=== PATIENT | female | born 1940 | race Hispanic/Latino ===

== ENCOUNTER 2020-11-05 09:14 | Outpatient (CLI) | payer MEDICARE, BC | END 2020-11-05 09:15 | disposition home or self-care (01) | LOC: CSHWCC 09:14 | PROVIDERS: ATTEND Nurse Practitioner Family | DX: T81.89XD Other complications of procedures, not elsewhere classified, subsequent encounter (principal); E27.40 Unspecified adrenocortical insufficiency; G89.4 Chronic pain syndrome; I10 Essential (primary) hypertension; M06.9 Rheumatoid arthritis, unspecified; Z92.25 Personal history of immunosuppression therapy | CPT/HCPCS: 87070; 87077; 87186; 87205; 97607 ==

== ENCOUNTER 2020-11-13 08:59 | Outpatient (CLI) | payer MEDICARE, BC | END 2020-11-13 09:00 | disposition home or self-care (01) | LOC: CSHWCC 08:59 | PROVIDERS: ATTEND Nurse Practitioner Family | DX: T81.89XD Other complications of procedures, not elsewhere classified, subsequent encounter (principal); E27.40 Unspecified adrenocortical insufficiency; G89.4 Chronic pain syndrome; I10 Essential (primary) hypertension; M06.9 Rheumatoid arthritis, unspecified; Z92.25 Personal history of immunosuppression therapy | CPT/HCPCS: 97607 ==

== ENCOUNTER 2020-11-21 09:07 | Outpatient (CLI) | payer MEDICARE, BC | END 2020-11-21 09:08 | disposition home or self-care (01) | LOC: CSHWCC 09:07 | PROVIDERS: ATTEND Nurse Practitioner Family | DX: T81.89XD Other complications of procedures, not elsewhere classified, subsequent encounter (principal); E27.40 Unspecified adrenocortical insufficiency; G89.4 Chronic pain syndrome; I10 Essential (primary) hypertension; M06.9 Rheumatoid arthritis, unspecified; Z92.25 Personal history of immunosuppression therapy | CPT/HCPCS: 97607 ==

== ENCOUNTER 2020-11-25 09:37 | Outpatient (CLI) | payer MEDICARE, BC | END 2020-11-25 09:38 | disposition home or self-care (01) | LOC: CSHWCC 09:37 | PROVIDERS: ATTEND Nurse Practitioner Family | DX: T81.89XD Other complications of procedures, not elsewhere classified, subsequent encounter (principal); E27.40 Unspecified adrenocortical insufficiency; G89.4 Chronic pain syndrome; I10 Essential (primary) hypertension; M06.9 Rheumatoid arthritis, unspecified; Z92.25 Personal history of immunosuppression therapy | CPT/HCPCS: 97605; 99213; G0463 ==

== ENCOUNTER 2020-11-28 09:00 | Outpatient (CLI) | payer MEDICARE, BC | END 2020-11-28 09:01 | disposition home or self-care (01) | LOC: CSHWCC 09:00 | PROVIDERS: ATTEND Nurse Practitioner Family | DX: T81.89XD Other complications of procedures, not elsewhere classified, subsequent encounter (principal); E27.40 Unspecified adrenocortical insufficiency; G89.4 Chronic pain syndrome; M06.9 Rheumatoid arthritis, unspecified; I10 Essential (primary) hypertension; Z92.25 Personal history of immunosuppression therapy | CPT/HCPCS: 97605; 99213; G0463 ==